=== PATIENT | male | born 1970 | race Caucasian/White ===

== ENCOUNTER 2020-09-22 00:35 | Emergency (ER) | payer OTHER ==
[~2020-09-22] VITALS: Ht 182.9 cm; Wt 77.1 kg
== END 2020-09-22 02:14 | disposition home or self-care (01) ==
LOC: ER 00:35
DX: S63.285A Dislocation of proximal interphalangeal joint of left ring finger, initial encounter (principal); W01.0XXA Fall on same level from slipping, tripping and stumbling without subsequent striking against object, initial encounter
CPT/HCPCS: 26670; 73140; 99283-25

== ENCOUNTER 2022-10-28 20:44 | Emergency (ER) | payer OTHER ==
[~2022-10-28] VITALS: Ht 175.3 cm; Wt 74.8 kg
[2022-10-28 20:45] VITALS: BP 161/103
== END 2022-10-28 23:16 | disposition home or self-care (01) ==
LOC: ER 20:44
DX: S01.81XA Laceration without foreign body of other part of head, initial encounter (principal); S50.312A Abrasion of left elbow, initial encounter; S80.212A Abrasion, left knee, initial encounter; S80.211A Abrasion, right knee, initial encounter; R41.3 Other amnesia; V89.2XXA Person injured in unspecified motor-vehicle accident, traffic, initial encounter
CPT/HCPCS: 70450; 72125; A9270

== ENCOUNTER 2023-12-09 12:32 | Emergency (ER) | payer OTHER ==
[~2023-12-09] VITALS: Ht 182.9 cm; Wt 77.1 kg
[2023-12-09 12:38] VITALS: BP 156/110
[2023-12-09] MEDS ORDERED: Lidocaine 2% Viscous Soln 15 ML UDC MT ONE (13:15)
== END 2023-12-09 14:45 | disposition home or self-care (01) ==
LOC: ER 12:32
DX: S60.512A Abrasion of left hand, initial encounter (principal); S80.212A Abrasion, left knee, initial encounter; V29.99XA Rider (driver) (passenger) of other motorcycle injured in unspecified traffic accident, initial encounter
CPT/HCPCS: 70450; 99284-25; A9270